=== PATIENT | female | born 2000 ===

== ENCOUNTER 2022-06-28 12:33 | Inpatient (IN) ==
[2022-06-28] MEDS ORDERED: CITRIC ACID/SODIUM CITRATE 30 ML UDCUP PO ONE (13:06)
[2022-06-28] MEDS ORDERED: miSOPROStoL 200 MCG TABLET RECTAL PRN (13:06)
[2022-06-28] MEDS ORDERED: CARBOPROST TROMETHAMINE 250 MCG/ML AMP IM PRN (13:06)
[2022-06-28] MEDS ORDERED: ceFAZolin 2,000 MG/50 ML DUPLEX IV ONE (13:06)
[2022-06-28] MEDS ORDERED: FAMOTIDINE 20 MG/2 ML VIAL IV ONE (13:06)
[2022-06-28] MEDS ORDERED: METHYLERGONOVINE 0.2 MG/1 ML AMP IM PRN (13:06)
[2022-06-28] MEDS ORDERED: TRANEXAMIC ACID 1,000 MG in SODIUM CHLORIDE 0.9% 100 ML IV PRN (13:06)
[2022-06-28] MEDS ORDERED: OXYTOCIN/LR 20 UNIT/1,000 ML BAG IV ONE ×2 (13:06→16:31)
[2022-06-28] MEDS ORDERED: OXYTOCIN 10 UNIT/ML VIAL IM ONE (13:18)
[2022-06-28] MEDS ORDERED: OXYTOCIN/LR 30 UNIT/1,000 ML BAG IV ONE ×2 (13:18→18:22)
[2022-06-28 13:28] LABS: Basophils % 0.4 % (0.0-0.8); Eosinophils # 0.1 10*3/uL (0.0-0.87); Hematocrit 34.5 VOL% (35.7-47.0); Hemoglobin 11.3 GM/DL (12.0-16.0); Immature Granulocytes % 0.3 %; Immature Granulocytes Absolute 0.02 #; Lymphocytes % 14.6 % (21.3-54.2); Mean Corpuscular HGB Conc 32.8 GM/DL (32-36); Mean Corpuscular Volume 86.3 FL (87-102); Mean Platelet Volume 9.3 FL (9.6-12.0); Monocytes # 0.7 10*3/uL (0.11-0.8); Monocytes % 9.9 % (1.7-12.7); Neutrophils % 73.8 % (38.7-73.9); Platelet Count 217 T/CUMM (130-400); Red Cell Distribution Width 13.2 % (9.3-17.3)
[2022-06-28] MEDS ORDERED: LACTATED RINGERS 1,000 ML IV SCH ×2 (13:30→17:00)
[2022-06-28 13:44] LABS: INR 0.8; PT Patient Result 9.4 SECS (10.1-12.1); Partial Thromboplastin Time 30.2 SECS (23.7-32.9)
[2022-06-28 13:45] LABS: Bilirubin,Direct < 0.100 MG/DL (0.0-0.20); Uric Acid 6.4 MG/DL (2.6-6.0)
[2022-06-28 13:54] LABS: Alanine Aminotransferase 11 U/L (13-56); Albumin 1.5 G/DL (3.4-5.0); Alkaline Phosphatase 280 U/L (45-117); Aspartate Amino Transferase 18 U/L (0-37); Bilirubin,Total < 0.39 MG/DL (0.20-1.00); Blood Urea Nitrogen 10 MG/DL (7-18); Calcium 8.1 MG/DL (8.5-10.1); Carbon Dioxide 21 MMOL/L (21-32); Chloride 112 MMOL/L (98-107); Glucose 89 MG/DL (74-106); Osmolality,Calculated 276.4 MOS/KG (273-304); Potassium 3.6 MMOL/L (3.5-5.1); Sodium 140 MMOL/L (136-145); Total Protein 5.1 G/DL (6.4-8.2)
[2022-06-28] MEDS ORDERED: miSOPROStoL 200 MCG TABLET ONE (14:40)
[2022-06-28] MEDS ORDERED: CARBOPROST TROMETHAMINE 250 MCG/ML AMP IM ONE (14:40)
[2022-06-28] MEDS ORDERED: ONDANSETRON 4 MG/2 ML VIAL ONE (14:47)
[2022-06-28] MEDS ORDERED: PHENYLEPHRINE 1 MG/10 ML SYRINGE IV ONE (14:47)
[2022-06-28] MEDS ORDERED: BUPIVACAINE MPF 0.5% 30 ML VIAL ONE (14:47)
[2022-06-28] MEDS ORDERED: buprenorphine HCL 0.3 MG/ML VIAL ONE (14:48)
[2022-06-28] MEDS ORDERED: FUROSEMIDE 20 MG/2 ML VIAL ONE ×2 (15:50)
[2022-06-28] MEDS ORDERED: GLUCAGON 1 MG VIAL IM PRN ×2 (15:57→16:31)
[2022-06-28] MEDS ORDERED: DEXTROSE 10% 250 ML BAG IV PRN ×2 (15:57→16:38)
[2022-06-28 16:05] LABS: Cord Venous Blood HCO3 21.3 MMOL/L; Cord Venous Blood PO2 29.4
[2022-06-28 16:08] LABS: Mucus,Urine Occasional /LPF (Occasional); RBC,Urine 1 /HPF (0-4); Squamous Epithelial Cell,Urine Occasional /HPF (0-10)
[2022-06-28 16:09] LABS: Urine Appearance Clear (Clear); Urine Color Yellow (Yellow)
[2022-06-28 16:10] LABS: Bilirubin,Urine Negative (Negative); Blood, Urine Small mg/dL (Negative); Glucose,Urine (UA) Negative (Negative); Ketones,Urine Negative (Negative); Nitrite,Urine Negative (Negative); Protein,Urine >=300 mg/dL (Negative); Urine Specific Gravity 1.025 (1.001-1.035); Urine pH 6.5 (4.5-8.0)
[2022-06-28 16:13] LABS: Barbiturates Screen,Urine Negative (Negative); Benzodiazepines Screen,Urine Negative (Negative); Cannabinoid Screen,Urine Negative (Negative); Opiate Screen,Urine Negative (Negative); Phencyclidine Screen,Urine Negative (Negative)
[2022-06-28 16:20] LABS: Protein/Creatinine Ratio,Urine 12.9 RATIO
[2022-06-28] MEDS ORDERED: ONDANSETRON 4 MG/2 ML VIAL IV PRN (16:31)
[2022-06-28] MEDS ORDERED: MAGNESIUM HYDROXIDE SUSP 30 ML UDCUP PO PRN (16:31)
[2022-06-28] MEDS ORDERED: SIMETHICONE CHEW 80 MG TABLET PO PRN (16:31)
[2022-06-28] MEDS ORDERED: ACETAMINOPHEN 325 MG TABLET PO PRN (16:31)
[2022-06-28] MEDS ORDERED: RHO(D) IMMUNE GLOBULIN 300 MCG SYRINGE IM ONE (16:31)
[2022-06-28] MEDS ORDERED: INSULIN REGULAR 100 UNIT/ML SUBCUT SCH (18:00)
[2022-06-28] MEDS ORDERED: ACETAMINOPHEN 500 MG TABLET PO SCH (18:00)
[2022-06-28] MEDS ORDERED: KETOROLAC 30 MG/1 ML VIAL IV SCH (18:00)
[2022-06-28 19:37] LABS: Basophils % 0.3 % (0.0-0.8); Eosinophils % 0.2 % (0.00-10.9); Hematocrit 34.5 VOL% (35.7-47.0); Hemoglobin 11.2 GM/DL (12.0-16.0); Immature Granulocytes % 0.4 %; Immature Granulocytes Absolute 0.06 #; Lymphocytes # 1.5 10*3/uL (1.4-4.0); Lymphocytes % 10.8 % (21.3-54.2); Mean Corpuscular HGB Conc 32.5 GM/DL (32-36); Mean Corpuscular Volume 87.8 FL (87-102); Mean Platelet Volume 9.5 FL (9.6-12.0); Monocytes % 7.1 % (1.7-12.7); Neutrophils % 81.2 % (38.7-73.9); Platelet Count 231 T/CUMM (130-400); Red Blood Count 3.93 MC/CUMM (3.8-5.5); Red Cell Distribution Width 13.2 % (9.3-17.3); White Blood Count 13.5 T/CUMM (4-12)
[2022-06-28] MEDS ORDERED: FUROSEMIDE 40 MG/4 ML VIAL IV SCH (22:00)
[2022-06-28] MEDS: DOCUSATE SODIUM 100 MG CAPSULE PO SCH (22:18)
[2022-06-29] MEDS ORDERED: ACETAMINOPHEN 500 MG TABLET ONE ×2 (00:29→06:19)
[2022-06-29] MEDS ORDERED: FUROSEMIDE 40 MG/4 ML VIAL IV SCH (00:30)
[2022-06-29] MEDS: INSULIN REGULAR 100 UNIT/ML SUBCUT SCH ×5 (02:00→18:07)
[2022-06-29 05:56] LABS: Basophils % 0.4 % (0.0-0.8); Eosinophils % 0.3 % (0.00-10.9); Hematocrit 29.2 VOL% (35.7-47.0); Hemoglobin 9.3 GM/DL (12.0-16.0); Immature Granulocytes % 0.5 %; Immature Granulocytes Absolute 0.06 #; Lymphocytes # 1.7 10*3/uL (1.4-4.0); Lymphocytes % 14.8 % (21.3-54.2); Mean Corpuscular HGB Conc 31.8 GM/DL (32-36); Mean Corpuscular Volume 87.7 FL (87-102); Mean Platelet Volume 9.7 FL (9.6-12.0); Monocytes # 0.9 10*3/uL (0.11-0.8); Monocytes % 8.2 % (1.7-12.7); Neutrophils % 75.8 % (38.7-73.9); Platelet Count 226 T/CUMM (130-400); Red Blood Count 3.33 MC/CUMM (3.8-5.5); Red Cell Distribution Width 13.3 % (9.3-17.3); White Blood Count 11.2 T/CUMM (4-12)
[2022-06-29] MEDS: ACETAMINOPHEN 500 MG TABLET PO PRN ×3 (06:30→18:49)
[2022-06-29] MEDS: KETOROLAC 30 MG/1 ML VIAL IV SCH ×3 (06:31→13:19)
[2022-06-29] MEDS: FUROSEMIDE 40 MG/4 ML VIAL IV PRN ×2 (06:48→13:17)
[2022-06-29] MEDS: DOCUSATE SODIUM 100 MG CAPSULE PO SCH (08:31)
[2022-06-29] MEDS: MULTIVITAMIN (PRENATAL) TABLET PO SCH (08:31)
[2022-06-29] MEDS: IBUPROFEN 800 MG TABLET PO PRN (13:10)
[2022-06-29] MEDS: METOCLOPRAMIDE 10 MG TABLET PO SCH (18:49)
[2022-06-30] MEDS: DOCUSATE SODIUM 100 MG CAPSULE PO SCH ×2 (00:06→09:25)
[2022-06-30] MEDS: METOCLOPRAMIDE 10 MG TABLET PO SCH ×2 (00:07→09:47)
[2022-06-30] MEDS: INSULIN REGULAR 100 UNIT/ML SUBCUT SCH ×2 (00:08→06:18)
[2022-06-30] MEDS: IBUPROFEN 800 MG TABLET PO PRN ×2 (00:13→09:25)
[2022-06-30 08:51] VITALS: BP 135/78
[2022-06-30] MEDS: MULTIVITAMIN (PRENATAL) TABLET PO SCH (09:25)
[2022-06-30] MEDS ORDERED: DIPH/TET/ACEL PERT BOOSTER VACCINE 0.5 ML VIAL IM ONE (10:45)
[2022-06-30] MEDS ORDERED: INFLUENZA VIRUS VACCINE 0.5 ML SYRINGE IM ONE ×2 (11:00→13:32)
== END 2022-06-30 12:44 | disposition home or self-care (01) | DRG 788 ==
LOC: N.LDOUT 12:33 → N.LD 12:35 → N.OB 21:23
PROVIDERS: ADMIT Pediatrics Neonatal-Perinatal Medicine; ATTEND Obstetrics & Gynecology
PROC: LDCSECT (ICD-10-PCS; 2022-06-28 15:00)